=== PATIENT | female | born 1955 | race Caucasian/White ===

== ENCOUNTER → 2017-11-10 | Outpatient (CLI) | payer OTHER ==
[~2017-11-10] MED LIST: IOHEXOL 350 MG/ML 10 ML VIAL (for RAD DIAG) IVCONTRAST ONE; LISI40TA PO; MACR100C2 PO; TRAM50TA PO
--- NOTE | 2017-11-10 09:34 | RADRPT ---
EXAM DATE/TIME: 11/10/2017 08:16 [facility] COMPARISON: No previous studies available for comparison. INDICATIONS : Evaluate for ureteral stricture. FLUORO TIME: ? minutes IMAGE COUNT: ? CONTRAST: 100 cc Omnipaque 350 (iohexol) IV Injection SiteLeft Hand Lot: Exp Date: Lot: Exp Date: MEDICAL HISTORY : Renal calculi. Arthritis. Perforated ureter SURGICAL HISTORY : Cholecystectomy. Kyphoplasty. Tubal ligation. Perforated ureter repair ENCOUNTER: Initial ACUITY: 2 months PAIN SCORE: 8/10 LOCATION: Right upper quadrant FINDINGS: Preliminary film is unremarkable. Following the intravenous administration of non-ionic contrast there is prompt excretion by the left kidney. The right kidney demonstrates a mildly prolonged nephrogram phase. Kidneys otherwise normal in size and shape. No cortical thinning or parenchymal masses are identified. The right renal collecting system is mildly distended. There is mild asymmetric distention of the right ureter to the level of the right inferior sacroiliac joint. Focal narrowing is identified in the ureter extending from this point to the bladder. The rig ht ureter is otherwise intact without evidence of leakage. Left renal collecting system appears normal. Delayed and post void imaging demonstrates good clearing of the right ureter and right renal collecti ng system. There is no residual hydronephrosis or hydroureter. The bladder demonstrates no abnormality and no significant post residual is present. CONCLUSION: 1. Mild narrowing in the distal right ureter causing mild proximal right renal collecting system dist ention which completely clears on postvoid imaging. 2. Intact right ureter without evidence of leakage. 3. Otherwise normal IVP. Janes Ivan MD on November 10, 2017 at 9:23 Board Certified Radiologist. This report was verified electronically.
== END ==
LOC: HRAD 07:37
PROVIDERS: ATTEND Urology
DX: R10.31 Right lower quadrant pain (principal); Z87.442 Personal history of urinary calculi
CPT/HCPCS: 74410; Q9967

== ENCOUNTER 2017-11-11 19:42 | Emergency (ER) | payer OTHER ==
[~2017-11-11 19:42] MED LIST changes: -IOHEXOL 350 MG/ML 10 ML VIAL (for RAD DIAG) IVCONTRAST ONE; -MACR100C2 PO
[2017-11-11 19:44] VITALS: BP 145/90; PULSE 80; RESP 16; TEMP 98.6; O2SAT 100
[2017-11-11] MEDS ORDERED: KETOROLAC TROMETHAMINE 30 MG/ML (IVP) VIAL IV PUSH ONE (20:15)
[2017-11-11] MEDS ORDERED: SODIUM CHLOR 0.9% 1000 ML INJ 1,000 ML IV ONE (20:15)
[2017-11-11] MEDS ORDERED: diphenhydrAMINE HCL 50 MG/ML VIAL IV PUSH ONE (20:15)
[2017-11-11] MEDS ORDERED: PROCHLORPERAZINE INJ 10 MG/2 ML VIAL IV PUSH ONE (20:15)
--- NOTE | 2017-11-11 20:18 | PD ---
HPI Chief Complaint: Flank/Kidney Pain Time Seen by Provider: 19:54 Travel History International Travel<30 days: No Contact w/Intl Traveler<30days: No Traveled to known affect area: No History of Present Illness HPI 62-year-old female presents to emergency department with complaints of acute exacerbation of chronic right flank and right lower abdominal pain. Patient states that she's had a history of kidney stones and right urethral strictures in the past. She has been under the care of the urologist. She had a outpatient urogram done yesterday which did not show any obvious obstruction or leakage of fluid. The patient states that over last 2 weeks she's had worsening pain. In the last week she is also had some intermittent subjective fever and chills. Positive nausea vomiting. She states the pain is gone more intense and rates her pain a 7/10. There is no exacerbating activity. There is no alleviating activity. She states the Ultram does not help her pain. She was seen by her urologist last month and has an appointment next month. Patient states that she cannot wait and presents for evaluation. Patient denies any hematuria, frequency, urgency. Positive decreased appetite. Positive nausea vomiting. PFSH Past Medical History Narrative Medical Arthritis, kidney stones, right urethral injury Arthritis: Yes Cancer: No Cardiovascular Problems: No Diabetes: No Patient Takes Glucophage: No Diminished Hearing: No Endocrine: No Gastrointestinal Disorders: No Genitourinary: No Headaches: Yes Hepatitis: No Hiatal Hernia: No Hypertension: Yes Immune Disorder: No Kidney Stones: Yes Medical other: No Musculoskeletal: Yes (ARTHRITIS, OSTEOPENIA) Neurologic: Yes (HEADACHES) Psychiatric: No Reproductive: No Respiratory: No Immunizations Current: Yes Thyroid Disease: No Tetanus Vaccination: > 5 Years Influenza Vaccination: No ?: Not Menopausal: Yes Tubal Ligation: Yes Past Surgical History Narrative Surgical Tubal ligation, hysterectomy, cholecystectomy, right ureter reconstruction, lithotripsy, ureteral stent Abdominal Surgery: Yes (CHOLECYSTECTOMY) AICD: No Gynecologic Surgery: Yes (TUBAL LIG., TAHBSO) Hysterectomy: Yes Joint Replacement: No Neurologic Surgery: Yes (L-2 KYPHOPLASTY) Pacemaker: No Other Surgery: Yes (lithotripsy, renal stent placement, lumbar fusion) Social History Alcohol Use: No Tobacco Use: No Substance Use: No Allergies-Medications (Allergen,Severity, Reaction): Coded Allergies: penicillin G (Unverified Allergy, Intermediate, rash, 11/11/17) Reported Meds & Prescriptions Reported Meds & Active Scripts Active Macrobid (Nitrofurantoin Monoh/Nitrofur Macro) 100 Mg Cap 100 Mg PO BID 7 Days Tramadol (Tramadol HCl) 50 Mg Tab 50 Mg PO Q6H PRN Reported Lisinopril 40 Mg Tab 40 Mg PO DAILY Review of Systems General / Constitutional: Positive: Fever, Chills Eyes: No: Visual changes HENT: No: Headaches Cardiovascular: No: Chest Pain or Discomfort Respiratory: No: Cough, Shortness of Breath Gastrointestinal: Positive: Nausea, Vomiting, Abdominal Pain Genitourinary: No: Urgency, Frequency, Dysuria, Nocturia, Hematuria Musculoskeletal: Positive: Pain Skin: No Rash Neurologic: No: Weakness Psychiatric: No: Depression Endocrine: No: Polydipsia Hematologic/Lymphatic: No: Easy Bruising Physical Exam Narrative GENERAL: Well-developed, well-nourished in no apparent distress. Nontoxic appearing. HEAD: Normocephalic, atraumatic. EYES: Pupils equal round and reactive. Extraocular motions intact. No scleral icterus. No injection or drainage. ENT: Nose clear. Throat without erythema, tonsillar hypertrophy or exudate. Uvula midline. Airway patent. NECK: Trachea midline. Supple, nontender, moves head freely. No central bony tenderness or spasm. CARDIOVASCULAR: Regular rate and rhythm without murmurs, gallops, or rubs. RESPIRATORY: Clear to auscultation. Breath sounds equal bilaterally. No wheezes , rales, or rhonchi. GASTROINTESTINAL: Abdomen soft, tender in the lower abdomen worse in the francisco- pubic and right lower quadrant. Mild guarding. No rebound. Nondistended. No hepato-splenomegaly, or palpable masses. EXTREMITIES: No clubbing, cyanosis, or edema. No joint tenderness. BACK: Nontender without deformity. No flank tenderness. NEUROLOGICAL: Awake, alert and oriented x 3 .Cranial nerves grossly intact. Motor and sensory grossly within normal limits. Normal speech. Data Data Last Documented VS Vital Signs Date Time Temp Pulse Resp B/P (MAP) Pulse Ox O2 Delivery O2 Flow Rate FiO2 11/11/17 23:33 11/11/17 19:44 98.6 80 16 100 Orders Orders Complete Blood Count With Diff (11/11/17 20:10) Comprehensive Metabolic Panel (11/11/17 20:10) Urinalysis - C+S If Indicated (11/11/17 20:10) Ct Abd/Pel W Iv Contrast(Rout) (11/11/17 20:10) Iv Access Insert/Monitor (11/11/17 20:10) Sodium Chlor 0.9% 1000 Ml Inj (Ns 1000 M (11/11/17 20:15) Ketorolac Inj (Toradol Inj) (11/11/17 20:15) Diphenhydramine Inj (Benadryl Inj) (11/11/17 20:15) Prochlorperazine Inj (Compazine Inj) (11/11/17 20:15) Iohexol 350 Inj (Omnipaque 350 Inj) (11/11/17 23:00) Urine Culture (11/11/17 20:57) Ed Discharge Order (11/11/17 23:31) Nitrofurantoin Monohyd Macrocr (Macrobid (11/11/17 23:45) Labs Laboratory Tests Test 11/11/17 20:43 11/11/17 20:57 White Blood Count 9.1 TH/MM3 Red Blood Count 4.44 MIL/MM3 Hemoglobin 13.1 GM/DL Hematocrit 39.2 % Mean Corpuscular Volume 88.1 FL Mean Corpuscular Hemoglobin 29.4 PG Mean Corpuscular Hemoglobin Concent 33.4 % Red Cell Distribution Width 13.5 % Platelet Count 293 TH/MM3 Mean Platelet Volume 7.8 FL Neutrophils (%) (Auto) 50.3 % Lymphocytes (%) (Auto) 39.3 % Monocytes (%) (Auto) 7.0 % Eosinophils (%) (Auto) 2.3 % Basophils (%) (Auto) 1.1 % Neutrophils # (Auto) 4.6 TH/MM3 Lymphocytes # (Auto) 3.6 TH/MM3 Monocytes # (Auto) 0.6 TH/MM3 Eosinophils # (Auto) 0.2 TH/MM3 Basophils # (Auto) 0.1 TH/MM3 CBC Comment DIFF FINAL Differential Comment Blood Urea Nitrogen 24 MG/DL Creatinine 0.67 MG/DL Random Glucose 105 MG/DL Total Protein 7.9 GM/DL Albumin 3.8 GM/DL Calcium Level 8.8 MG/DL Alkaline Phosphatase 108 U/L Aspartate Amino Transf (AST/SGOT) 21 U/L Alanine Aminotransferase (ALT/SGPT) 34 U/L Total Bilirubin 0.4 MG/DL Sodium Level 141 MEQ/L Potassium Level 3.6 MEQ/L Chloride Level 107 MEQ/L Carbon Dioxide Level 26.5 MEQ/L Anion Gap 8 MEQ/L Estimat Glomerular Filtration Rate 90 ML/MIN Urine Color LIGHT-YELLOW Urine Turbidity HAZY Urine pH 6.5 Urine Specific [place] 1.022 Urine Protein NEG mg/dL Urine Glucose (UA) NEG mg/dL Urine Ketones NEG mg/dL Urine Occult Blood SMALL Urine Nitrite NEG Urine Bilirubin NEG Urine Urobilinogen LESS THAN 2.0 MG/DL Urine Leukocyte Esterase LARGE Urine RBC 3 /hpf Urine WBC 14 /hpf Urine Squamous Epithelial Cells 2 /hpf Urine Bacteria OCC /hpf Urine Mucus FEW /lpf Microscopic Urinalysis Comment CULTURE INDICATED MDM Medical Decision Making Medical Screen Exam Complete: Yes Emergency Medical Condition: Yes Medical Record Reviewed: Yes Interpretation(s) Ureterogram 11/10/17 negative for obstructive uropathy. No leakage. Laboratory Tests Test 11/11/17 20:43 11/11/17 20:57 White Blood Count 9.1 TH/MM3 Red Blood Count 4.44 MIL/MM3 Hemoglobin 13.1 GM/DL Hematocrit 39.2 % Mean Corpuscular Volume 88.1 FL Mean Corpuscular Hemoglobin 29.4 PG Mean Corpuscular Hemoglobin Concent 33.4 % Red Cell Distribution Width 13.5 % Platelet Count 293 TH/MM3 Mean Platelet Volume 7.8 FL Neutrophils (%) (Auto) 50.3 % Lymphocytes (%) (Auto) 39.3 % Monocytes (%) (Auto) 7.0 % Eosinophils (%) (Auto) 2.3 % Basophils (%) (Auto) 1.1 % Neutrophils # (Auto) 4.6 TH/MM3 Lymphocytes # (Auto) 3.6 TH/MM3 Monocytes # (Auto) 0.6 TH/MM3 Eosinophils # (Auto) 0.2 TH/MM3 Basophils # (Auto) 0.1 TH/MM3 CBC Comment DIFF FINAL Differential Comment Blood Urea Nitrogen 24 MG/DL Creatinine 0.67 MG/DL Random Glucose 105 MG/DL Total Protein 7.9 GM/DL Albumin 3.8 GM/DL Calcium Level 8.8 MG/DL Alkaline Phosphatase 108 U/L Aspartate Amino Transf (AST/SGOT) 21 U/L Alanine Aminotransferase (ALT/SGPT) 34 U/L Total Bilirubin 0.4 MG/DL Sodium Level 141 MEQ/L Potassium Level 3.6 MEQ/L Chloride Level 107 MEQ/L Carbon Dioxide Level 26.5 MEQ/L Anion Gap 8 MEQ/L Estimat Glomerular Filtration Rate 90 ML/MIN Urine Color LIGHT-YELLOW Urine Turbidity HAZY Urine pH 6.5 Urine Specific Edna 1.022 Urine Protein NEG mg/dL Urine Glucose (UA) NEG mg/dL Urine Ketones NEG mg/dL Urine Occult Blood SMALL Urine Nitrite NEG Urine Bilirubin NEG Urine Urobilinogen LESS THAN 2.0 MG/DL Urine Leukocyte Esterase LARGE Urine RBC 3 /hpf Urine WBC 14 /hpf Urine Squamous Epithelial Cells 2 /hpf Urine Bacteria OCC /hpf Urine Mucus FEW /lpf Microscopic Urinalysis Comment CULTURE INDICATED CBC & BMP Diagram 11/11/17 20:43 Total Protein 7.9, Albumin 3.8, Calcium Level 8.8, Alkaline Phosphatase 108, Aspartate Amino Transf (AST/SGOT) 21, Alanine Aminotransferase (ALT/SGPT) 34, Total Bilirubin 0.4 Last 24 hours Impressions Abdomen/Pelvis CT 11/11/172009 Signed Impressions: Service Date/Time: Saturday, November 11, 2017 22:58 - CONCLUSION: No acute abnormality demonstrated. Demetrius Ochoa MD Differential Diagnosis Differential diagnosis: Nephrolithiasis, ureterolithiasis, diverticulitis, colitis, chronic pain, Narrative Course IV access is obtained. Patient given a liter bolus of normal saline, Benadryl 50 mg IV, Compazine 10 mg IV, and Toradol 30 mg IV. We'll obtain a CT scan with IV contrast along with routine laboratory testing. Patient has had complete resolution of her pain. CT reveals no acute process. She does have evidence of prior compression fracture of her back, chronic stable renal artery aneurysms. She has diverticulosis but no diverticulitis. Patient is informed all of these findings. She is aware that her pain may be coming from her back as well as other etiologies. She is encouraged to follow-up with her doctor. This is right flank pain, right abdominal pain, UTI Diagnosis Primary Impression: right flank plain Additional Impressions: right lower quadrant pain UTI Patient Instructions: General Instructions Additional Instructions: Rest. Increase fluids. Antibiotics. Follow-up with your doctor in 1 week. Return to ER for any problems. Consider MRI of the back. Med/Other Pt SpecificInfo: Prescription(s) given Scripts Nitrofurantoin Monohydrate Macrocrystals (Macrobid) 100 Mg Cap 100 MG PO BID for Infection for 7 Days, #14 CAP 0 Refills Prov: Elijah Aviles MD 11/11/17 Disposition: 01 DISCHARGE HOME Condition: Stable Colin Kaur Nov 11, 2017 20:17
[2017-11-11 20:59] LABS: AUTOMATED NEUTROPHIL # 4.6 TH/MM3 (1.8-7.7); BASOPHIL # 0.1 TH/MM3 (0-0.2); BASOPHIL % 1.1 % (0.0-2.0); EOSINOPHIL # 0.2 TH/MM3 (0-0.4); EOSINOPHIL % 2.3 % (0.0-4.0); HEMATOCRIT 39.2 % (35.0-46.0); HEMOGLOBIN 13.1 GM/DL (11.6-15.3); LYMPH % 39.3 % (9.0-44.0); LYMPHOCYTE # 3.6 TH/MM3 (1.0-4.8); MEAN CELL VOLUME 88.1 FL (80.0-100.0); MEAN CORPUSCULAR HEMOGLOBIN 29.4 PG (27.0-34.0); MEAN CORPUSCULAR HGB CONC 33.4 % (32.0-36.0); MEAN PLATELET VOLUME 7.8 FL (7.0-11.0); MONOCYTE # 0.6 TH/MM3 (0-0.9); NEUT % 50.3 % (16.0-70.0); PLATELET COUNT 293 TH/MM3 (150-450); RED BLOOD COUNT 4.44 MIL/MM3 (4.00-5.30); RED CELL DISTRIBUTION WIDTH 13.5 % (11.6-17.2); WHITE BLOOD COUNT 9.1 TH/MM3 (4.0-11.0)
[2017-11-11 21:18] LABS: ALBUMIN 3.8 GM/DL (3.4-5.0); ALT (GPT) 34 U/L (10-53); AST (GOT) 21 U/L (15-37); BICARBONATE 26.5 MEQ/L (21.0-32.0); BLOOD UREA NITROGEN 24 MG/DL (7-18); CALCIUM 8.8 MG/DL (8.5-10.1); CHLORIDE 107 MEQ/L (98-107); CREATININE 0.67 MG/DL (0.50-1.00); GLOMERULAR FILTRATION RATE 90 ML/MIN (>89); GLUCOSE,RANDOM 105 MG/DL (74-106); SODIUM (NA) 141 MEQ/L (136-145)
[2017-11-11 21:21] LABS: ALKALINE PHOSPHATASE 108 U/L (45-117); TOTAL BILIRUBIN ADULT 0.4 MG/DL (0.2-1.0); TOTAL PROTEIN 7.9 GM/DL (6.4-8.2)
[2017-11-11] MEDS ORDERED: IOHEXOL 350 MG/ML 10 ML VIAL (for RAD DIAG) IVCONTRAST ONE (23:00)
--- NOTE | 2017-11-11 23:15 | RADRPT ---
EXAM DATE/TIME: 11/11/2017 22:58 [facility] COMPARISON: CT ABDOMEN & PELVIS W/O CONTRAST, April 10, 2016, 14:33. INDICATIONS : Abdominal pain. IV CONTRAST: 100 cc Omnipaque 350 (iohexol) IV ORAL CONTRAST: No oral contrast ingested. RADIATION DOSE: 7.71 CTDIvol (mGy) MEDICAL HISTORY : None SURGICAL HISTORY : Kyphoplasty. ENCOUNTER: Initial ACUITY: 1 day PAIN SCALE: 8/10 LOCATION: abdomen TECHNIQUE: Volumetric scanning of the abdomen and pelvis was performed. Using automated exposure control and ad justment of the mA and/or kV according to patient size, radiation dose was kept as low as reasonably achievable to obtain optimal diagnostic quality images. DICOM format image data is available electro nically for review and comparison. FINDINGS: LOWER LUNGS: The visualized lower lungs are clear. LIVER: Homogeneous density without lesion. There is no dilation of the biliary tree. No calcified gallston es. SPLEEN: Normal size without lesion. PANCREAS: Within normal limits. KIDNEYS: No stone or hydronephrosis demonstrated. Previously seen right ureteral stent has been removed. There are 9 mm right and 6 mm left renal artery aneurysms, not significantly changed. ADRENAL GLANDS: Within normal limits. VASCULAR: There is no aortic aneurysm. BOWEL/MESENTERY: Mild sigmoid diverticulosis. No acute inflammatory changes are seen. There is no obstruction or free fluid. Appendix is well-visualized, normal. ABDOMINAL WALL: Within normal limits. RETROPERITONEUM: There is no lymphadenopathy. BLADDER: No wall thickening or mass. REPRODUCTIVE: Within normal limits. INGUINAL: There is no lymphadenopathy or hernia. MUSCULOSKELETAL: No acute bony abnormality demonstrated. Compression deformity with kyphoplasty changes again seen at L2. CONCLUSION: No acute abnormality demonstrated. Demetrius Ochoa MD on November 11, 2017 at 23:11 Board Certified Radiologist. This report was verified electronically.
[2017-11-11 23:30] LABS: BACTERIA, URINE OCC /hpf; BILIRUBIN, URINE NEG (NEG); BLOOD, URINE SMALL (NEG); GLUCOSE,URINE NEG (NEG); KETONE, URINE NEG (NEG); MUCUS URINE FEW /lpf (OCC); NITRITE,URINE NEG (NEG); PH, URINE 6.5 (5.0-8.5); SQUAMOUS EPITHELIAL CELL URINE 2 /hpf (0-5); URINE COLOR LIGHT-YELLOW (YELLW/STRAW); URINE LEUKOCYTE ESTERASE LARGE (NEG)
[2017-11-11] MEDS ORDERED: MACR100C2 PO (23:32)
[2017-11-11] MEDS ORDERED: NITROFURANTOIN MONOHYD MACROCR 100 MG CAP PO ONE (23:45)
== END 2017-11-11 23:51 | disposition home or self-care (01) ==
LOC: NEPD 19:42
DX: R10.31 Right lower quadrant pain (principal); N39.0 Urinary tract infection, site not specified; K57.30 Diverticulosis of large intestine without perforation or abscess without bleeding; M19.90 Unspecified osteoarthritis, unspecified site; I10 Essential (primary) hypertension; Z79.899 Other long term (current) drug therapy; Z88.0 Allergy status to penicillin; Z87.442 Personal history of urinary calculi
CPT/HCPCS: 74177; 80053; 81001; 85025; 87086; 96361; 96374; 96375; 99285; J0780; J1200; J1885; J7030; Q9967

== ENCOUNTER → 2018-01-12 | Day surgery (SDC) | payer OTHER ==
[~2018-01-12] VITALS: Ht 157.5 cm; Wt 67.7 kg
[~2018-01-12] MED LIST changes: +*morphine SULFATE 10 MG/ML PERIprocedure ONLY ONE; +APREPITANT 40 MG CAP ONE; +BETH25TA2 PO; +CHLORHEXIDINE GLUCONATE 2 % 1 PACK (2 CLOTHS) TOPICAL PRN; +CIPROFLOXACIN/DEXT 400 MG/200 ML IV SCH; +DEXAMETHASONE SOD PHOS 4 MG/ML VIAL IV ONE; +DO NOT ADM ANY ANTICOAGULANT DRUGS PRN; +FAMOTIDINE 20 MG/2 ML VIAL ONE; +GLYCOPYRROLATE 1 MG/5 ML SYRINGE IV PUSH ONE; +LACTATED RINGER'S 1000 ML IV PRN; +LIDOCAINE HCL 1% PF 5 ML SYRINGE OTHER ONE; +METOPROLOL TARTRATE 25 MG TAB PO PRN; +MIDAZOLAM HCL 2 MG/2 ML VIAL ONE; +NALOXONE HCL 0.4 MG/ML AMP ONE; +OMEP20TA93 PO; +ONDANSETRON HCL 4 MG/2 ML VIAL ONE; +PHENYLEPH/NS 1000 MCG/10 ML SYR IV ONE; +POVIDONE IODINE 5% (ANTISEPSIS KIT) 4 APPLICATIONS EACH NARE PRN; +PROPOFOL 200 MG/20 ML AMP IV ONE; +SCOPOLAMINE 1.5 MG PATCH ONE; +SODIUM CHLORID 0.9% 500 ML IV PRN; +SUCCINYLCHOLINE CHLORIDE 100 MG/5 ML SYRINGE IV PUSH ONE; +ePHEDrine/NS 25 MG/5 ML SYRINGE IV ONE; +fentaNYL CITRATE 250 MCG/5 ML AMP ONE
[2018-01-12 09:08] LABS: AUTOMATED NEUTROPHIL # 3.6 TH/MM3 (1.8-7.7); BASOPHIL # 0.1 TH/MM3 (0-0.2); BASOPHIL % 1.3 % (0.0-2.0); EOSINOPHIL # 0.2 TH/MM3 (0-0.4); EOSINOPHIL % 2.5 % (0.0-4.0); HEMATOCRIT 40.7 % (35.0-46.0); HEMOGLOBIN 13.6 GM/DL (11.6-15.3); LYMPH % 36.8 % (9.0-44.0); LYMPHOCYTE # 2.6 TH/MM3 (1.0-4.8); MEAN CELL VOLUME 87.4 FL (80.0-100.0); MEAN CORPUSCULAR HEMOGLOBIN 29.1 PG (27.0-34.0); MEAN CORPUSCULAR HGB CONC 33.3 % (32.0-36.0); MEAN PLATELET VOLUME 7.7 FL (7.0-11.0); MONO % 8.1 % (0.0-8.0); MONOCYTE # 0.6 TH/MM3 (0-0.9); NEUT % 51.3 % (16.0-70.0); PLATELET COUNT 293 TH/MM3 (150-450); RED BLOOD COUNT 4.66 MIL/MM3 (4.00-5.30)
--- NOTE | 2018-01-12 11:32 | EKG ---
Date Performed: 01/12/2018 Time Performed: 09:04:47 PTAGE: 62 years EKG: Sinus rhythm NORMAL ECG Since the prior tracing, there has been no significant change PREVIOUS TRACING : 04/22/2016 06.55 DOCTOR: Sarita Alexander Interpretating Date/Time 01/12/2018 11:29:58
--- NOTE | 2018-01-12 11:38 | PD.OP ---
Operative Report Date of Surgery: Jan 12, 2018 Preoperative Diagnosis: Right ureteral stricture Postoperative Diagnosis: Same Procedure: Cystoscopy with right retrograde pyelogram, right ureteral dilatation, right double-J stent insertion 2 Anesthesia: TIA Surgeon: Aldo Morris Manager Er(s): None Resident Surgeon: None Operation and Findings: 62-year-old female with a history of ureteral narrowing of the right ureter. Patient is undergone open ureteral lithotomy 2 many years ago. She's been experiencing right flank pain at different times throughout the day. Decision was made to bring the patient to the operating room to undergo cystoscopy with right retrograde Polygram and possible ureteral dilatation with stent insertion. Risk and benefits discussed preoperatively and she was willing to proceed. Patient was brought to the operating room and identified by myself as Kinga Michael. She is placed in dorsal lithotomy position, prepped and draped in usual sterile fashion, received preprocedure antibiotics and general endotracheal tube anesthesia was administered. 22 Trinidadian cystoscope was inserted in the bladder morton cystoscopy did not reveal any abnormalities. The right ureteral orifice was located slightly higher up on the right lateral wall. A 5 Trinidadian open-ended catheter was inserted into the right ureteral orifice and retrograde pyelogram was performed. Some narrowing of the distal ureter was identified on the retrograde pyelogram. A 0.3 Cedeno wire was then passed through the open-ended catheter with a good curl in the kidney. The open-ended catheter was then removed. Ureteral dilatation was then performed with Microvasive ureteral dilators. This was done with a 6 Trinidadian up to a 14 Trinidadian ureteral dilator. The cystoscope was then backloaded over the wire and then a 6 Trinidadian 22 centimeter stent was then placed without difficulty. The wire was then removed and then reinserted into the right ureteral orifice and up into the kidney. A second 22 cm 6 Trinidadian right double- J stent was then inserted again without difficulty on the right side. The bladder was evacuated and she was awoken and transferred from stable condition. She will follow-up in a few months to undergo cystoscopy with a pullout retrograde on the right side with possible ureteroscopy at that time. Aldo Morris DO Jan 12, 2018 11:38
[2018-01-12 12:55] VITALS: BP 115/66; PULSE 78; RESP 16; TEMP 98.4; O2SAT 100
== END | disposition home or self-care (01) ==
LOC: HSDC 07:57
PROVIDERS: ATTEND Urology
DX: N13.5 Crossing vessel and stricture of ureter without hydronephrosis (principal); N20.0 Calculus of kidney; I10 Essential (primary) hypertension
CPT/HCPCS: 00910; 52332; 52344; 74420; 85025; 93005; C1726; C1769; J0330; J0744; J1100; J2250; J2270; J2370; J2405; J3010; J8501; J2310

== ENCOUNTER → 2018-02-23 | Day surgery (SDC) | payer OTHER ==
[~2018-02-23] VITALS: Ht 157.5 cm; Wt 65.8 kg
[~2018-02-23] MED LIST changes: +*MEPERIDINE 25 MG INJ VIAL PERIprocedural Use ONLY ONE; -*morphine SULFATE 10 MG/ML PERIprocedure ONLY ONE; +*morphine SULFATE 4 MG/ML PERIprocedure ONLY ONE; +ACETAMINOPHEN 1000 MG/100 ML 100 ML IV ONE; -APREPITANT 40 MG CAP ONE; +BELLADONNA ALKALOIDS/OPIUM 60 MG SUPP RECTAL ONE; +BELLADONNA ALKALOIDS/OPIUM 60 MG SUPP RECTAL PRN; -CIPROFLOXACIN/DEXT 400 MG/200 ML IV SCH; -FAMOTIDINE 20 MG/2 ML VIAL ONE; -GLYCOPYRROLATE 1 MG/5 ML SYRINGE IV PUSH ONE; +IOHEXOL 350 MG/ML 50 ML BTL (for RAD DIAG) OTHER ONE; +LACTATED RINGER'S 1000 ML INJ 1,000 ML IV ONE; +MORPHINE SULFATE 4 MG/ML INJ IV PRN; -NALOXONE HCL 0.4 MG/ML AMP ONE; +ONDANSETRON HCL 4 MG/2 ML VIAL IV ONE; +ONDANSETRON HCL 4 MG/2 ML VIAL IV PRN; -ONDANSETRON HCL 4 MG/2 ML VIAL ONE; +PROPOFOL 500 MG/50 ML INJ 50 ML ONE; -SCOPOLAMINE 1.5 MG PATCH ONE; -SUCCINYLCHOLINE CHLORIDE 100 MG/5 ML SYRINGE IV PUSH ONE; +VANCOMYCIN 1 GM/200 ML PREMIX ON-CALL IV SCH; -ePHEDrine/NS 25 MG/5 ML SYRINGE IV ONE; -fentaNYL CITRATE 250 MCG/5 ML AMP ONE; +oxyCODONE/ACETAMINOPHEN 5 MG/325 MG TAB PO PRN
[2018-02-23 07:09] LABS: AUTOMATED NEUTROPHIL # 5.9 TH/MM3 (1.8-7.7); BASOPHIL # 0.1 TH/MM3 (0-0.2); BASOPHIL % 1.1 % (0.0-2.0); EOSINOPHIL # 0.3 TH/MM3 (0-0.4); EOSINOPHIL % 2.6 % (0.0-4.0); HEMATOCRIT 39.4 % (35.0-46.0); HEMOGLOBIN 13.1 GM/DL (11.6-15.3); LYMPH % 28.4 % (9.0-44.0); LYMPHOCYTE # 2.8 TH/MM3 (1.0-4.8); MEAN CELL VOLUME 86.5 FL (80.0-100.0); MEAN CORPUSCULAR HEMOGLOBIN 28.8 PG (27.0-34.0); MEAN CORPUSCULAR HGB CONC 33.3 % (32.0-36.0); MEAN PLATELET VOLUME 8.1 FL (7.0-11.0); MONO % 6.8 % (0.0-8.0); MONOCYTE # 0.7 TH/MM3 (0-0.9); NEUT % 61.1 % (16.0-70.0); PLATELET COUNT 323 TH/MM3 (150-450); RED BLOOD COUNT 4.56 MIL/MM3 (4.00-5.30); RED CELL DISTRIBUTION WIDTH 14.7 % (11.6-17.2); WHITE BLOOD COUNT 9.7 TH/MM3 (4.0-11.0)
--- NOTE | 2018-02-23 09:55 | PD.OP ---
Operative Report Date of Surgery: Feb 23, 2018 Preoperative Diagnosis: Right ureteral narrowing Postoperative Diagnosis: Same Procedure: Cystoscopy with right retrograde pyelogram, right ureteroscopy and right double- J stent removal 2 Anesthesia: General LMA Surgeon: Aldo Morris Radiation Safety Officer(s): None Resident Surgeon: None Operation and Findings: 63-year-old female with history of prior right ureteral lithotomy many years ago with findings of narrowing of the distal right ureter on IVP. Patient underwent ureteral dilatation with placement of 2 right sided double-J stents approximately 2 months ago. She is admitted to undergo cystoscopy with right retrograde pullout study and possible ureteroscopy. Risk and benefits were discussed preoperatively and she was willing to proceed. Patient was brought to operating room and identified by myself as Kinga Michael. She was placed on the operating table in the dorsal lithotomy position, prepped and draped in usual sterile fashion, received preprocedure antibiotics and general LMA anesthesia was administered. A 2 Welsh cystoscope was inserted in the bladder and the first ureteral stent was brought out to the urethral meatus. A 0.35 sensor wire was then passed through the stent and up into the kidney and the stent was then removed. The cystoscope was reinserted in the bladder and using the alligator grasper the other retained stent was then removed. A 5 Welsh open catheter was inserted over the wire and a retrograde study was performed. There was some funneling of the right ureter identified at the area of near the crossing vessel overlying the sacrum. This however was much wider than on the prior IVP. It was noted that transit time of the contrast material from the collecting system down the ureter was slow. Using the rigid ureteroscope inspection was performed up the ureter to the area of the UPJ. No narrowing of the UPJ was identified. The scope was then removed and she was awoken and extubated and transferred to recovery room in stable condition. She tolerated the procedure well. There is no indication for a ureteral repair based on the current findings. Aldo Morris DO Feb 23, 2018 09:55
[2018-02-23 11:30] VITALS: BP 135/67; PULSE 52; RESP 20; TEMP 97.6; O2SAT 99
== END | disposition home or self-care (01) ==
LOC: HSDC 06:02
PROVIDERS: ATTEND Urology
DX: N13.5 Crossing vessel and stricture of ureter without hydronephrosis (principal); I10 Essential (primary) hypertension
CPT/HCPCS: 00910; 52310; 74420; 85025; C1769; J0131; J1100; J2175; J2250; J2270; J2370; J2405; J3370; J7120; Q9967

== ENCOUNTER → 2018-04-03 | Outpatient (CLI) | payer OTHER ==
[~2018-04-03] MED LIST changes: -*MEPERIDINE 25 MG INJ VIAL PERIprocedural Use ONLY ONE; -*morphine SULFATE 4 MG/ML PERIprocedure ONLY ONE; -ACETAMINOPHEN 1000 MG/100 ML 100 ML IV ONE; -BELLADONNA ALKALOIDS/OPIUM 60 MG SUPP RECTAL ONE; -BELLADONNA ALKALOIDS/OPIUM 60 MG SUPP RECTAL PRN; -CHLORHEXIDINE GLUCONATE 2 % 1 PACK (2 CLOTHS) TOPICAL PRN; -DEXAMETHASONE SOD PHOS 4 MG/ML VIAL IV ONE; -DO NOT ADM ANY ANTICOAGULANT DRUGS PRN; +IOHEXOL 350 MG/ML 100 ML BTL (for RAD DIAG) IVCONTRAST ONE; -IOHEXOL 350 MG/ML 50 ML BTL (for RAD DIAG) OTHER ONE; -LACTATED RINGER'S 1000 ML INJ 1,000 ML IV ONE; -LACTATED RINGER'S 1000 ML IV PRN; -LIDOCAINE HCL 1% PF 5 ML SYRINGE OTHER ONE; -METOPROLOL TARTRATE 25 MG TAB PO PRN; -MIDAZOLAM HCL 2 MG/2 ML VIAL ONE; -MORPHINE SULFATE 4 MG/ML INJ IV PRN; -ONDANSETRON HCL 4 MG/2 ML VIAL IV ONE; -ONDANSETRON HCL 4 MG/2 ML VIAL IV PRN; -PHENYLEPH/NS 1000 MCG/10 ML SYR IV ONE; -POVIDONE IODINE 5% (ANTISEPSIS KIT) 4 APPLICATIONS EACH NARE PRN; -PROPOFOL 200 MG/20 ML AMP IV ONE; -PROPOFOL 500 MG/50 ML INJ 50 ML ONE; -SODIUM CHLORID 0.9% 500 ML IV PRN; -VANCOMYCIN 1 GM/200 ML PREMIX ON-CALL IV SCH; -oxyCODONE/ACETAMINOPHEN 5 MG/325 MG TAB PO PRN
--- NOTE | 2018-04-03 09:40 | RADRPT ---
EXAM DATE/TIME: 04/03/2018 08:26 [facility] COMPARISON: No previous studies available for comparison. INDICATIONS : Right flank pain, evaluate hydronephrosis and obstruction FLUORO TIME: 0 minutes IMAGE COUNT: 8 CONTRAST: 100 cc Omnipaque 350 (iohexol) IV Injection SiteRight Wrist Lot: [id number] Exp Date: Dec 2019 Lot: Exp Date: MEDICAL HISTORY : right renal colic, hydronephrosis SURGICAL HISTORY : Kyphoplasty. ENCOUNTER: Initial ACUITY: 1 year PAIN SCORE: 3/10 LOCATION: Right flank FINDINGS: Preliminary film is unremarkable. Following the raid intravenous administration of non-ionic contrast prompt symmetrical bilateral neph rograms were obtained the kidney briceno normal in size, shape position and axis. No cortical thinning or parenchymal masses are identified. The intrarenal collecting systems and ureters are unremarkable. The bladder demonstrates no abnormality and no significant post residual is present. CONCLUSION: Unremarkable excretory urogram. Demetrius Sawyer MD on April 03, 2018 at 9:37 Board Certified Radiologist. This report was verified electronically.
== END ==
LOC: HRAD 08:04
PROVIDERS: ATTEND Urology
DX: N13.0 Hydronephrosis with ureteropelvic junction obstruction (principal)
CPT/HCPCS: 74410; Q9967